=== PATIENT | male | born 1955 | race African-American/Black ===

== ENCOUNTER → 2016-10-19 | Day surgery (SDC) | payer MEDICARE ==
[~2016-10-19] MED LIST: ASPI1TAB69 PO; ASPI81CH CHEW; ATEN25TA PO; ATOR20TA15 PO; CLOZ100 PO; GABA100C4 PO; LACTATED RINGER'S 1000 ML INJ 1,000 ML ONE; PROPOFOL 200 MG/20 ML AMP IV ONE
--- NOTE | 2016-10-19 13:49 | GIPROC ---
[facility] [address] [facility], [address] COLONOSCOPY PROCEDURE REPORT EXAM DATE: 10/19/2016 PATIENT NAME: Pedrito Augustin MR #: [id number] BIRTHDATE: 1955 ENDOSCOPIST: Kashmir Peña MD ORDER #: [id number] INTEGRATION DEVELOPER: Ramona Echavarria RN STATUS: outpatient INDICATIONS: The patient is a 61 yr old male here for a colonoscopy due to iron deficiency anemia PROCEDURE PERFORMED: Colonoscopy with polypectomy MEDICATIONS: None and Per Anesthesia. PREP QUALITY: fair ESTIMATED BLOOD LOSS: None CONSENT: The patient understands the risks and benefits of the procedure and understands that these risks include, but are not limited to: sedation, allergic reaction, infection, perforation and/or bleeding. Alternative means of evaluation and treatment include, among others: physical exam, x-rays, and/or surgical intervention. The patient elects to proceed with this endoscopic procedure. medical equipment was checked for proper function. Hand hygiene and appropriate measures for infection prevention was taken. After the risks, benefits and alternatives of the procedure were thoroughly explained, Informed consent was verified, confirmed and timeout was successfully executed by the treatment team. A digital exam revealed no abnormalities of the rectum The EC-[id number] ([id number]) endoscope was introduced through the anus and advanced to the cecum, which was identified by both the appendix and ileocecal valve. The instrument was then slowly withdrawn as the colon was fully examined. COLON FINDINGS: A medium sized smooth sessile polyp was found in the descending colon. A polypectomy was performed with a cold snare. The resection was complete and the polyp tissue was completely retrieved. The colon mucosa was otherwise normal. The colon mucosa was otherwise normal. Retroflexed views revealed no abnormalities The scope was then completely withdrawn from the patient and the procedure terminated. PROCEDURE WITHDRAWAL TIME:8.9minutes ADVERSE EVENTS: There were no complications. IMPRESSIONS: 1. A medium sized sessile polyp was found in the descending colon; polypectomy was performed with a cold snare 2. The colon mucosa was otherwise normal 3. The colon mucosa was otherwise normal 4. Retroflexed views revealed no abnormalities 5. Revealed no abnormalities of the rectum RECOMMENDATIONS: 1. Await biopsy results. Biopsy results will not be ready for 7-10 days. If you don't hear from us in two weeks, call our office for results. 2. Follow-up: GI Clinic PRN 3. Yearly hemoccult 4. High fiber diet RECALL: Return 5 years Colonoscopy Kashmir Peña MD eSigned: Kashmir Peña MD 10/19/2016 1:48 PM cc: [facility] DOCUMENT ADDENDUM eSigned: Kashmir Peña MD 10/19/2016 2:45 PM Reason for addendum: [x] Correction of inaccurate information [ ] Recently acquired lab/pathology results [ ] Additional information Comments: a 7mm polyp was noted in the DC and removed with a snare and sent for path PATIENT NAME: Pedrito Augusitn MR#: [id number]
--- NOTE | 2016-10-19 13:52 | GIPROC ---
[facility] [address] [facility] [facility], [address] EGD PROCEDURE REPORT EXAM DATE: 10/19/2016 PATIENT NAME: Pedrito Augustin MR #: [id number] BIRTHDATE: 1955 ATTENDING: Kashmir Peña MD ORDER #: [id number] WING MAILER MACHINE OPERATOR: Ramona Echavarria RN STATUS: outpatient INDICATIONS: The patient is a 61 yr old male here for an EGD due to anemia PROCEDURE PERFORMED: EGD w/ biopsy MEDICATIONS: None, Per Anesthesia, None, and Per Anesthesia. TOPICAL ANESTHETIC: CONSENT: The patient understands the risks and benefits of the procedure and understands that these risks include, but are not limited to: sedation, allergic reaction, infection, perforation and/or bleeding. Alternative means of evaluation and treatment include, among others: physical exam, x-rays, and/or surgical intervention. The patient elects to proceed with this endoscopic procedure. medical equipment was checked for proper function. Hand hygiene and appropriate measures for infection prevention was taken. After the risks, benefits and alternatives of the procedure were thoroughly explained, Informed consent was verified, confirmed and timeout was successfully executed by the treatment team. The patient was anesthetized with topical anesthesia and the EC-3490Li ([id number]) endoscope was introduced through the mouth and advanced to the second portion of the duodenum. Retroflexed views revealed no abnormalities The gastroscope was then slowly withdrawn and removed. ESOPHAGUS: Irregular z line, this was biopsied. DUODENUM: The duodenal mucosa appeared normal. Cold forcep biopsies were taken in the second portion. The endoscopy was otherwise normal. ADVERSE EVENTS: There were no complications. IMPRESSIONS: 1. Irregular z line, this was biopsied 2. Normal duodenal mucosa 3. Normal endoscopy otherwise 4. Retroflexed views revealed no abnormalities RECOMMENDATIONS: 1. Await biopsy results. Biopsy results will not be ready for 7-10 days. If you don't hear from us in two weeks, call our office for biopsy results. 2. Follow-up: GI clinic 4 week(s) 3. Cbc prior office visit PATIENT CONDITION: stable DISPOSITION: Home REPEAT EXAM: Kashmir Peña MD eSigned: Kashmir Peña MD 10/19/2016 1:51 PM cc: Herbert Dawkins
== END | disposition home or self-care (01) ==
LOC: ESDC 10:22
PROVIDERS: ATTEND Internal Medicine Gastroenterology
DX: D50.9 Iron deficiency anemia, unspecified (principal); D12.4 Benign neoplasm of descending colon; K22.9 Disease of esophagus, unspecified
CPT/HCPCS: 00740; 00810; 43239; 45385; 88305; J3010; J7120

== ENCOUNTER 2017-02-28 09:56 | Emergency (ER) | payer MEDICARE, MEDICAID ==
[~2017-02-28] VITALS: Ht 188 cm; Wt 105.0 kg
[~2017-02-28 09:56] MED LIST changes: -ASPI1TAB69 PO; -LACTATED RINGER'S 1000 ML INJ 1,000 ML ONE; -PROPOFOL 200 MG/20 ML AMP IV ONE
[2017-02-28 09:59] VITALS: BP 138/86; PULSE 107; RESP 18; TEMP 98.6; O2SAT 97
[2017-02-28 10:13] VITALS: BP 142/84; PULSE 100; RESP 16; O2SAT 97
[2017-02-28 11:00] LABS: AUTOMATED NEUTROPHIL # 3.3 TH/MM3 (1.8-7.7); BASOPHIL # 0.1 TH/MM3 (0-0.2); EOSINOPHIL % 0.5 % (0.0-4.0); HEMATOCRIT 35.5 % (39.0-51.0); HEMO FLAGS DIFF FINAL; LYMPH % 28.1 % (9.0-44.0); LYMPHOCYTE # 1.5 TH/MM3 (1.0-4.8); MEAN CELL VOLUME 88.1 FL (80.0-100.0); MEAN CORPUSCULAR HEMOGLOBIN 28.5 PG (27.0-34.0); MEAN CORPUSCULAR HGB CONC 32.4 % (32.0-36.0); MONO % 7.7 % (0.0-8.0); NEUT % 62.7 % (16.0-70.0); PLATELET COUNT 167 TH/MM3 (150-450); RED BLOOD COUNT 4.03 MIL/MM3 (4.50-5.90); RED CELL DISTRIBUTION WIDTH 13.1 % (11.6-17.2); WHITE BLOOD COUNT 5.3 TH/MM3 (4.0-11.0)
[2017-02-28 11:13] LABS: ANION GAP 8 MEQ/L (5-15); AST (GOT) 19 U/L (15-37); BICARBONATE 29.5 MEQ/L (21.0-32.0); BLOOD UREA NITROGEN 10 MG/DL (7-18); CHLORIDE 108 MEQ/L (98-107); GLOMERULAR FILTRATION RATE 96 ML/MIN (>89); POTASSIUM 3.3 MEQ/L (3.5-5.1); SODIUM (NA) 145 MEQ/L (136-145)
[2017-02-28 11:14] LABS: ALT (GPT) 15 U/L (12-78)
[2017-02-28 11:16] LABS: ALKALINE PHOSPHATASE 110 U/L (45-117); TOTAL BILIRUBIN ADULT 0.4 MG/DL (0.2-1.0)
[2017-02-28 11:18] LABS: ACETAMINOPHEN LESS THAN 2.0 MCG/ML (10.0-30.0); ALCOHOL LESS THAN 3 MG/DL (0-5)
--- NOTE | 2017-02-28 11:27 | PD ---
HPI Chief Complaint: Psychiatric Symptoms Time Seen by Provider: 11:24 Travel History International Travel<30 days: No Contact w/Intl Traveler<30days: No Traveled to known affect area: No History of Present Illness HPI 61 -year-old male presents to the emergency department with his niece and sister bedside percent right the patient has history of paranoid schizophrenia. He has apparently refused his medications since approximately . Since then, he has not been sleeping much and has been hearing his voices more. The patient is difficult to understand and is hard of hearing. His family members help to understand what the patient is saying. They state that this is his baseline. The patient is apparently is on Clozaril and gabapentin. He apparently has chronic hip pain, but is not complaining of any pain or symptoms at this time. He denies any alcohol or illicit drug use. He does smoke anterior tobacco. PFSH Past Medical History Depression: Yes High Cholesterol: Yes Hypertension: Yes Schizophrenia: Yes Tetanus Vaccination: > 5 Years ?: Not Social History Alcohol Use: No Tobacco Use: Yes Substance Use: No Allergies-Medications (Allergen,Severity, Reaction): Coded Allergies: No Known Allergies (Unverified , 11/04/16) Reported Meds & Prescriptions Reported Meds & Active Scripts Active Aspirin 81 Mg Chew 81 Mg CHEW DAILY Atorvastatin (Atorvastatin Calcium) 20 Mg Tab 20 Mg PO HS Atenolol 25 Mg Tab 25 Mg PO DAILY Reported Gabapentin 100 Mg Cap 100 Mg PO BID Clozaril (Clozapine) 100 Mg Tab 100 Mg PO BID Review of Systems Except as stated in HPI: all other systems reviewed are Neg Physical Exam Narrative GENERAL: Well-nourished, well-developed male patient, afebrile. SKIN: Focused skin assessment warm/dry. HEAD: Normocephalic. Atraumatic. EYES: No scleral icterus. No injection or drainage. NECK: Supple, trachea midline. No JVD or lymphadenopathy. CARDIOVASCULAR: Regular rate and rhythm without murmurs, gallops, or rubs. RESPIRATORY: Breath sounds equal bilaterally. No accessory muscle use. Lungs sounds are clear to auscultation GASTROINTESTINAL: Abdomen soft, non-tender, nondistended. MUSCULOSKELETAL: No cyanosis, or edema. PSYCHIATRIC: No delusional thought processes. No current hallucinations. Patient admits to hearing voices. Data Data Last Documented VS Vital Signs Date Time Temp Pulse Resp B/P (MAP) Pulse Ox O2 Delivery O2 Flow Rate FiO2 02/28/17 10:13 100 16 142/84 (103) 97 Room Air 02/28/17 09:59 98.6 Orders Orders Complete Blood Count With Diff (02/28/17 10:32) Comprehensive Metabolic Panel (02/28/17 10:32) Psych Screen (02/28/17 10:32) Drug Screen, Random Urine (02/28/17 10:32) Alcohol (Ethanol) (02/28/17 10:32) Salicylates (Aspirin) (02/28/17 10:32) Tylenol (Acetaminophen) (02/28/17 10:32) Potassium Chloride (Kcl) (02/28/17 11:30) Labs Laboratory Tests Test 02/28/17 10:40 02/28/17 10:42 Urine Opiates Screen NEG Urine Barbiturates Screen NEG Urine Amphetamines Screen NEG Urine Benzodiazepines Screen NEG Urine Cocaine Screen NEG Urine Cannabinoids Screen NEG White Blood Count 5.3 TH/MM3 Red Blood Count 4.03 MIL/MM3 Hemoglobin 11.5 GM/DL Hematocrit 35.5 % Mean Corpuscular Volume 88.1 FL Mean Corpuscular Hemoglobin 28.5 PG Mean Corpuscular Hemoglobin Concent 32.4 % Red Cell Distribution Width 13.1 % Platelet Count 167 TH/MM3 Mean Platelet Volume 8.3 FL Neutrophils (%) (Auto) 62.7 % Lymphocytes (%) (Auto) 28.1 % Monocytes (%) (Auto) 7.7 % Eosinophils (%) (Auto) 0.5 % Basophils (%) (Auto) 1.0 % Neutrophils # (Auto) 3.3 TH/MM3 Lymphocytes # (Auto) 1.5 TH/MM3 Monocytes # (Auto) 0.4 TH/MM3 Eosinophils # (Auto) 0.0 TH/MM3 Basophils # (Auto) 0.1 TH/MM3 CBC Comment DIFF FINAL Differential Comment Blood Urea Nitrogen 10 MG/DL Creatinine 0.96 MG/DL Random Glucose 100 MG/DL Total Protein 7.5 GM/DL Albumin 3.9 GM/DL Calcium Level 9.2 MG/DL Alkaline Phosphatase 110 U/L Aspartate Amino Transf (AST/SGOT) 19 U/L Alanine Aminotransferase (ALT/SGPT) 15 U/L Total Bilirubin 0.4 MG/DL Sodium Level 145 MEQ/L Potassium Level 3.3 MEQ/L Chloride Level 108 MEQ/L Carbon Dioxide Level 29.5 MEQ/L Anion Gap 8 MEQ/L Estimat Glomerular Filtration Rate 96 ML/MIN Salicylates Level LESS THAN 1.7 MG/DL Acetaminophen Level LESS THAN 2.0 MCG/ML Ethyl Alcohol Level LESS THAN 3 MG/DL MDM Medical Decision Making Medical Screen Exam Complete: Yes Emergency Medical Condition: Yes Medical Record Reviewed: Yes Differential Diagnosis Paranoid schizophrenia versus medication noncompliance versus depression versus anxiety Narrative Course 61-year-old male history of schizophrenia presents to the emergency department for psychiatric evaluation with his sister and niece at bedside. He has been refusing his medications. He states that he feels better without them. He does admit to hearing voices more frequently. He has no medical complaints at this time. CBC shows no acute abnormality. CMP shows no acute abnormality. Patient does have slight hypokalemia with potassium 3.3. Patient is given potassium 20 mEq by mouth. Urine drug screen is negative. Salicylate level is less than 1.7. Acetaminophen level is less than 2.0. Alcohol level is less than 3. Patient is medically cleared for psychiatric screening and disposition. Mental health screening discussed with the patient. Psychiatric screen ordered. Marlena, roads and parking lots sweeper operator, saw patient and spoke with family. Patient is now not refusing his medications. Family is to bring him back if symptoms reoccur. party chief would like patient discharged home. This is reasonable. Diagnosis Primary Impression: Schizophrenia Qualified Codes: F20.0 - Paranoid schizophrenia Referrals: Primary Care Physician call for appointment Patient Instructions: General Instructions, Schizophrenia (ED) Additional Instructions: Follow-up with your primary care physician. Return to the emergency department for any acute worsening of symptoms. Med/Other Pt SpecificInfo: No Change to Meds Disposition: 01 DISCHARGE HOME Condition: Stable Jessica Contreras TROY Feb 28, 2017 11:27
[2017-02-28] MEDS ORDERED: POTASSIUM CHLORIDE 20 MEQ CONTROLLED RELEASE TAB PO ONE (11:30)
--- NOTE | 2017-02-28 14:24 | PD ---
History of Present Illness Chief Complaint: Psychiatric Symptoms Time Seen by Provider: 14:00 Travel History International Travel<30 Days: No Contact w/Intl Traveler<30days: No Known affected area: No Legal Status Legal Status: Voluntary History of Present Illness: History of Present Illness Patient is a 61-year-old male with history of schizophrenia who presents to the emergency department on a voluntary status accompanied by his niece and his sister, Elza Tomas provides most of the information as patient is very hard of hearing . The sister reports that patient has been stable on psychiatric medications including Clozaril 200 mg twice a day and gabapentin 600 mg twice a day for the past 16 years. However she reports that for the past 5 days he has refused to take his medications and has been staying up most of the night, is having verbal outbursts, and although at baseline he has auditory hallucinations he is responding more to his voices. The patient's sister is concerned as he has been stable for the past 16 years and she is afraid that he will deteriorate needing hospitalization. This sister also tells me that since they have been in the hospital the patient told her that he stopped taking the medication because the color of the pills changed. She has explained to him that they are the same medication and she tells me that he took his Clozaril while in the ED EMR is reviewed there are no previous contact with [facility] psychiatry current toxicology is negative Patient is alert response to his name being called makes an effort in answering questions but it is very difficult to understand him. He admits to hearing voices denies that the voices are telling him to hurt himself or hurt anyone else. There is no suicidal or homicidal ideation intent or plan. The patient is calm and is not agitated or aggressive. After some discussion about options this sister is X to take him home with the understanding that he will once again begin to take his medication. I have given her the option to do so as well as to bring him back to the hospital if he once again refuses to take his medication. 61 -year-old male presents to the emergency department with his niece and sister bedside percent right the patient has history of paranoid schizophrenia. He has apparently refused his medications since approximately . Since then, he has not been sleeping much and has been hearing his voices more. The patient is difficult to understand and is hard of hearing. His family members help to understand what the patient is saying. They state that this is his baseline. The patient is apparently is on Clozaril and gabapentin. He apparently has chronic hip pain, but is not complaining of any pain or symptoms at this time. He denies any alcohol or illicit drug use. He does smoke anterior tobacco. PFSH Past Medical History Depression: Yes High Cholesterol: Yes Hypertension: Yes Schizophrenia: Yes Tetanus Vaccination: > 5 Years ?: Not Psychiatric History Psychiatric History Hx Psychiatric Treatment: Sister reports an extensive past psychiatric history with multiple hospitalizations. Last hospitalization was approximately 16 years ago History of Inpatient Treatment: Yes Guns or firearms in home: No Social History Single male, never , lives with sister, on disability, hearing impaired. Hx Alcohol Use: No Hx Tobacco Use: Yes Hx Substance Use: No Hx of Substance Use Treatment: No Family Psychiatric History Negative Allergies-Medications (Allergen,Severity, Reaction): Coded Allergies: No Known Allergies (Unverified , 11/04/16) Reported Meds & Prescriptions Reported Meds & Active Scripts Active Aspirin 81 Mg Chew 81 Mg CHEW DAILY Atorvastatin (Atorvastatin Calcium) 20 Mg Tab 20 Mg PO HS Atenolol 25 Mg Tab 25 Mg PO DAILY Reported Gabapentin 100 Mg Cap 100 Mg PO BID Clozaril (Clozapine) 100 Mg Tab 100 Mg PO BID Review of Systems ROS Limitations: Speech Impaired Mental Status Examination Appearance: Appropriate, Well dressed/well groomed Consciousness: Alert Orientation: Person, Place Motor Activity: Normal gait Speech: Speech impediment Language: Other (unable to assess) Fund of Knowledge: Poor (unable to fully assess) Attention and Concentration: Adequate Memory: Unremarkable (appears grossly intact not formally tested) Mood: Appropriate Affect: Appropriate Thought Process & Associations: Intact Thought Content: Hallucinations (noncommand) Hallucination Type: Auditory (non-command) Delusion Type: None Suicidal Ideation: No Suicidal Plan: No Suicidal Intention: No Homicidal Ideation: No Homicidal Plan: No Homicidal Intention: No Insight: Fair Judgment: Poor (as evidenced by stopping medication) [facility] Medical Decision Making Medical Record Reviewed: Yes Assessment/Plan Patient is a 61-year-old male with history of schizophrenia who presents to the emergency department on a voluntary status accompanied by his niece and his sister, Elza Candidate provides most of the information as patient is very hard of hearing . The sister reports that patient has been stable on psychiatric medications including Clozaril 200 mg twice a day and gabapentin 600 mg twice a day for the past 16 years. However she reports that for the past 5 days he has refused to take his medications and has been staying up most of the night, is having verbal outbursts, and although at baseline he has auditory hallucinations he is responding more to his voices. The patient's sister is concerned as he has been stable for the past 16 years and she is afraid that he will deteriorate needing hospitalization. This sister also tells me that since they have been in the hospital the patient told her that he stopped taking the medication because the color of the pills changed. She has explained to him that they are the same medication and she tells me that he took his Clozaril while in the ED Case was discussed with sister and with Carla at the bedside. Plan is to have the patient return home with no change to current medication. Sister is advised that she is to return the patient to the emergency department if any changes in condition, any increase in hallucinations, or if patient continues to refuse medication. She agrees with this plan. Patient is psychiatrically clear for discharge from ED Orders Orders Complete Blood Count With Diff (02/28/17 10:32) Comprehensive Metabolic Panel (02/28/17 10:32) Psych Screen (02/28/17 10:32) Drug Screen, Random Urine (02/28/17 10:32) Alcohol (Ethanol) (02/28/17 10:32) Salicylates (Aspirin) (02/28/17 10:32) Tylenol (Acetaminophen) (02/28/17 10:32) Potassium Chloride (Kcl) (02/28/17 11:30) Results Vital Signs Date Time Temp Pulse Resp B/P (MAP) Pulse Ox O2 Delivery O2 Flow Rate FiO2 02/28/17 10:13 100 16 142/84 (103) 97 Room Air 02/28/17 09:59 98.6 107 18 138/86 (103) 97 Room Air Laboratory Tests Test 02/28/17 10:40 02/28/17 10:42 Urine Opiates Screen NEG Urine Barbiturates Screen NEG Urine Amphetamines Screen NEG Urine Benzodiazepines Screen NEG Urine Cocaine Screen NEG Urine Cannabinoids Screen NEG White Blood Count 5.3 Red Blood Count 4.03 Hemoglobin 11.5 Hematocrit 35.5 Mean Corpuscular Volume 88.1 Mean Corpuscular Hemoglobin 28.5 Mean Corpuscular Hemoglobin Concent 32.4 Red Cell Distribution Width 13.1 Platelet Count 167 Mean Platelet Volume 8.3 Neutrophils (%) (Auto) 62.7 Lymphocytes (%) (Auto) 28.1 Monocytes (%) (Auto) 7.7 Eosinophils (%) (Auto) 0.5 Basophils (%) (Auto) 1.0 Neutrophils # (Auto) 3.3 Lymphocytes # (Auto) 1.5 Monocytes # (Auto) 0.4 Eosinophils # (Auto) 0.0 Basophils # (Auto) 0.1 CBC Comment DIFF FINAL Differential Comment Blood Urea Nitrogen 10 Creatinine 0.96 Random Glucose 100 Total Protein 7.5 Albumin 3.9 Calcium Level 9.2 Alkaline Phosphatase 110 Aspartate Amino Transf (AST/SGOT) 19 Alanine Aminotransferase (ALT/SGPT) 15 Total Bilirubin 0.4 Sodium Level 145 Potassium Level 3.3 Chloride Level 108 Carbon Dioxide Level 29.5 Anion Gap 8 Estimat Glomerular Filtration Rate 96 Salicylates Level LESS THAN 1.7 Acetaminophen Level LESS THAN 2.0 Ethyl Alcohol Level LESS THAN 3 Diagnosis Primary Impression: Schizophrenia Psychiatrically Cleared: Yes Med/ Other Pt Specific Info: No Change to Meds Disposition: 01 DISCHARGE HOME Condition: Stable Problem Qualifiers Primary Impression: Schizophrenia 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
== END 2017-02-28 14:42 | disposition home or self-care (01) ==
LOC: NEPD 09:56
DX: F20.0 Paranoid schizophrenia (principal); F32.9 Major depressive disorder, single episode, unspecified; Z72.0 Tobacco use
CPT/HCPCS: 80053; 80307; 85025; 99284